=== PATIENT | female | born 1995 | race Caucasian/White ===

== ENCOUNTER 2017-12-08 11:26 | Emergency (ER) | payer OTHER ==
[2017-12-08 11:31] VITALS: BP 124/79
--- NOTE | 2017-12-08 11:38 | ER Report ---
History and Physical Time Seen By MD: 11:40 Hx. of Stated Complaint: PT CUT LEFT HAD WITH A KNIFE WHILE CUTTING AN AVACADO LAST NIGHT AROUNF 9PM HPI/ROS CHIEF COMPLAINT: Finger laceration HISTORY OF PRESENT ILLNESS: Patient is a 22-year-old female with no contributory past medical history. She presents with laceration to the left index finger at the MCP joint radial aspect. She states she cut her finger while trying to cut some mouth was last night. She has local wound care. The wound has continued to bleed so she comes to the emergency department for evaluation. She denies numbness tingling she denies any motor dysfunction. Allergies: Coded Allergies: sulfamethoxazole (Verified Allergy, Intermediate, EXTREME VOMITTING, ) trimethoprim (Verified Allergy, Intermediate, EXTREME VOMITTING, 12/08/17) Home Meds No Active Prescriptions or Reported Meds Past Medical/Surgical History Noncontributory towards his chief complaint Constitutional Vital Sign - Last 24 Hours 12/08/17 11:31 Temp 98.4 Pulse 89 Resp 14 B/P (MAP) 124/79 Pulse Ox 95 O2 Delivery Room Air Physical Exam Examination of left hand Examination of the Left hand reveals no acute deformity. The patient is able to give a thumbs up sign, is able to make an okay sign, and is able to AB duct the fingers. Sensation is intact over the dorsal 1st web space, the volar aspect of the 2nd finger, and the volar aspect of the 5th finger. Capillary refill is brisk. Her is a 1.5 cm laceration to the radial aspect of the 2nd finger at the metacarpal phalangeal joint. The wound was explored there is no deep injury there is no involvement of tendons. Plan will be primary with Dermabond. Medical Decision Making ED Course/Re-evaluation ED Course 12/08/2017 12:33:43 pm Dermabond was placed to close wound. Patient tolerated procedure well. Procedure Dermabond was placed over the wound or primary wound closure. No complications. Wound length 1.5 cm. No deep structures were involved. Decision to Disposition Date: Dec 08, 2017 Decision to Disposition Time: 12:28 Depart Departure Latest Vital Signs Vital Signs Date Time Temp Pulse Resp B/P (MAP) Pulse Ox O2 Delivery O2 Flow Rate FiO2 12/08/17 11:31 98.4 89 14 124/79 95 Room Air Impression: Primary Impression: Finger laceration Condition: Improved Disposition: HOME OR SELF-CARE New Scripts No Active Prescriptions or Reported Meds Patient Instructions: Finger Laceration (ED), Skin Adhesive Care (ED) Problem Qualifiers Primary Impression: Finger laceration Encounter type: initial encounter Finger: index finger Damage to nail status: without damage Foreign body presence: without foreign body Laterality: left Qualified Codes: S61.211A - Laceration without foreign body of left index finger without damage to nail, initial encounter ANABELA CANELA MD Dec 08, 2017 11:37
[2017-12-08] MEDS ORDERED: DIPHTH/TETANUS/ACEL. PERTUSSIS IM ONLY ONE (11:40)
== END 2017-12-08 12:35 | disposition home or self-care (01) ==
LOC: ER 11:40
DX: S61.211A Laceration without foreign body of left index finger without damage to nail, initial encounter (principal); W26.0XXA Contact with knife, initial encounter
CPT/HCPCS: 90471; 90715; 99283